=== PATIENT | male | born 1965 | race Caucasian/White ===

== ENCOUNTER 2017-03-13 00:37 | Emergency (ER) | payer OTHER ==
[~2017-03-13] VITALS: Ht 190.5 cm; Wt 90.7 kg
[2017-03-13] MEDS ORDERED: FLUOXETINE HCL40 MG PO (01:18)
== END 2017-03-13 11:05 ==
LOC: ED 00:37
DX: F10.129 Alcohol abuse with intoxication, unspecified (principal); R45.851 Suicidal ideations; S20.211A Contusion of right front wall of thorax, initial encounter; F32.9 Major depressive disorder, single episode, unspecified; F17.200 Nicotine dependence, unspecified, uncomplicated; Z98.52 Vasectomy status; Z79.899 Other long term (current) drug therapy; Y90.7 Blood alcohol level of 200-239 mg/100 ml; X58.XXXA Exposure to other specified factors, initial encounter; Y93.72 Activity, wrestling
CPT/HCPCS: 36415; 71020; 80053; 80176; 81001; 85025; 99285; G0480